=== PATIENT | male | born 1970 | race Caucasian/White ===

== ENCOUNTER 2019-10-31 03:19 | Day surgery (SDC) | payer OTHER, SELFPAY ==
[2019-10-23 09:10] VITALS: BMI 30.4
--- NOTE | 2019-10-30 06:29 | PM.HPGS ---
History of Present Illness History of Present Illness Consent: Risks, benefits, and alternatives have been discussed and questions answered. Patient agrees to proceed with procedure. Chief complaint: Left TM Perforation Narrative: Eron Perry is a 49 year old male Review of Systems Review of Systems: All systems reviewed & are unremarkable except as noted in HPI and below Meds Home Medications and Allergies Home Medications Medication Instructions Recorded Confirmed Type acetaminophen 325 mg PO BID PRN 10/23/19 10/23/19 History albuterol sulfate [ProAir HFA] 2 inh INHALATION QID PRN 10/23/19 10/23/19 History buspirone 20 mg PO TID 10/23/19 10/23/19 History duloxetine 60 mg PO DAILY 10/23/19 10/23/19 History fluticasone propionate [Flonase 1 spray INTRANASAL DAILY 10/23/19 10/23/19 History Allergy Relief] ibuprofen 600 mg PO BID PRN 10/23/19 10/23/19 History mometasone 1 inh INHALATION BID 10/23/19 10/23/19 History tiotropium bromide [Spiriva with 1 cap INHALATION DAILY 10/23/19 10/23/19 History HandiHaler] Allergies Allergy/AdvReac Type Severity Reaction Status Date / Time No Known Allergies Allergy Verified 10/23/19 09:11 Assessment and Plan Additional Plan plan is a left tympanoplasty
[2019-10-31] VITALS (9 sets, daily range): BP systolic 104–152; BP diastolic 70–80; PULSE 76–92; RESP 9–14; TEMP 36.2–36.6; O2SAT 94–100
--- NOTE | 2019-10-31 06:18 | WPDHPUPDATE1 ---
History and Physical Update Update Date/Time: 10/31/19 06:18 History and Physical has been reviewed, including an updated exam of the patient. There are NO changes in the patient's condition. Risks, benefits, and alternatives have been discussed and questions answered. Patient agrees to proceed with procedure.
--- NOTE | 2019-10-31 08:07 | WPDANESEPPF ---
Anes - Initial Pre Proc Eval Procedure: Operation Date: 10/31/19 09:00 Proposed Procedures p Left Tympanoplasty - Micah Ibarra MD Date/Time: 10/31/19 08:07 Surgeon: Micah Ibarra MD Pre Op Diagnosis: Left TM Perforation Patient Data Age: 49 Gender: M Height: 5 ft 6 in Weight: 85.73 kg Allergies Allergy/AdvReac Type Severity Reaction Status Date / Time No Known Allergies Allergy Verified 10/23/19 09:11 Home Medications Medication Instructions Recorded Confirmed Type acetaminophen 325 mg PO BID PRN 10/23/19 10/23/19 History albuterol sulfate [ProAir HFA] 2 inh INHALATION QID PRN 10/23/19 10/23/19 History buspirone 20 mg PO TID 10/23/19 10/23/19 History duloxetine 60 mg PO DAILY 10/23/19 10/23/19 History fluticasone propionate [Flonase 1 spray INTRANASAL DAILY 10/23/19 10/23/19 History Allergy Relief] ibuprofen 600 mg PO BID PRN 10/23/19 10/23/19 History mometasone 1 inh INHALATION BID 10/23/19 10/23/19 History tiotropium bromide [Spiriva with 1 cap INHALATION DAILY 10/23/19 10/23/19 History HandiHaler] Patient hx anesthesia problems: none Family hx anesthesia problems: none PMFSH Past Medical History Medical History COPD (chronic obstructive pulmonary disease) Seizure disorder Anes - Eval Final PreProcedure Day of Procedure 10/31/19 08:07 Patient weight: overweight Heart: regular rate and rhythm Lungs: decreased breath sounds Airway: Mallampati scale class II Neurological: alert and oriented Last oral intake: >/= 8 hours ASA classification: III Emergent: no Anesthetic plan: proceed Anesthesia type and monitoring: general LMA and standard monitoring Informed Consent: The patient's anesthetic plan and its attendant risks and benefits were discussed with the patient/family/POA. Questions were solicited and answers provided to the satisfaction of the patient/family/POA.
[2019-10-31] MEDS: LACTATED RINGERS 1,000 ML 30 ML IV CONT (08:13)
[2019-10-31] MEDS: ACETAMINOPHEN 500 MG TABLET 1000 MG PO (08:14)
[2019-10-31] MEDS: CIPROFLOXACIN HCL 0.3% OP SOLN 2.5 ML BTL 4 DROP EACH EAR (08:18)
[2019-10-31] MEDS: LIDO 1%/EPINEPHRINE 1:100,000 20 ML VIAL 3 ML INFILTRATE (08:18)
[2019-10-31] MEDS: NEOMYCIN/POLYMYXIN B/PRAMOXINE 15 GM CREAM 1 APPLIC TOPICAL (08:26)
--- NOTE | 2019-10-31 09:13 | PM.PROC ---
Procedure Note - Detailed Date of procedure: 10/31/19 Pre-op diagnosis: Left TM Perforation Post-op diagnosis: same Procedure performed: Left tympanoplasty Description of procedure: patient was prepped and draped in a general anesthesia the postauricular region was injected xylocaine with adrenaline incision was made temporalis fascia graft harvested as some bleeding was at ascertain was obtained was controlled with the Bovie and closed with 4 0 chromic of the temporalis fascia was crushed dried and placed in underlay fashion under all edges of the perforation patient awakened returned to recovery in good condition after placement of a mastoid dressing Anesthesia: GLMA Surgeon: Micah Ibarra MD Estimated blood loss (mL): 50 Drains: No Packing: No Pathology: none sent Complications: No immediate complications Condition: stable Disposition: PACU Findings: tympanic membrane perforation
== END 2019-10-31 11:02 | disposition home or self-care (01) ==
PROVIDERS: Visit Provider Otolaryngology
PROC: (CPT 69631; principal; 2019-10-31 09:00)
DX: H72.92 Unspecified perforation of tympanic membrane, left ear (principal); J44.9 Chronic obstructive pulmonary disease, unspecified; G40.909 Epilepsy, unspecified, not intractable, without status epilepticus
CPT/HCPCS: 69631; A9270; J0171; J1100; J2250; J2405; J2704; J3010; J7120